=== PATIENT | male | born 1965 | race Caucasian/White ===

== ENCOUNTER 2025-02-08 15:40 | Inpatient (IN) ==
[2025-02-08 16:31] LABS: Basophils # (Auto) 0.01 K/mcL (0.00-0.30); Basophils % (Auto) 0.1 % (0.0-2.0); Eosinophils % (Auto) 1.3 % (0.0-7.0); Hematocrit 42.9 % (40.1-51.0); Hemoglobin 14.1 g/dL (13.7-17.5); Lymphocytes % (Auto) 11.6 % (15.5-49.0); Mean Cell Volume 106.5 fL (80.0-100.0); Mean Corpuscular HGB Conc 32.9 g/dL (31.0-36.0); Mean Platelet Volume 10.3 fL (8.8-12.5); Monocytes # (Auto) 0.67 K/mcL (0.10-0.90); Monocytes % (Auto) 8.7 % (1.0-12.0); Neutrophils % (Auto) 78.2 % (38.0-78.0); Platelet Count 118 K/mcL (140-440); RBC 4.03 M/mcL (4.63-6.08); WBC 7.7 K/mcL (4.5-11.0)
[2025-02-08 17:02] LABS: ALT/SGPT 11 U/L (<40); AST/SGOT 23 U/L (<40); Albumin/Globulin Ratio 1.4 (1.0-2.3); Alkaline Phosphatase 95 U/L (39-117); Bilirubin,Total 0.6 mg/dL (0.1-1.0); Blood Urea Nitrogen 26 mg/dL (8-23); Calcium 9.5 mg/dL (8.6-10.4); Carbon Dioxide 27 mmol/L (22-30); Chloride 100 mmol/L (96-108); Globulin 2.9 gm/dL (2.2-3.7); Glomerular Filtration Rate 31; Glucose 239 mg/dL (70-105); Potassium 4.4 mmol/L (3.3-5.1); Sodium 140 mmol/L (133-145)
[2025-02-08 17:03] LABS: Alcohol, Blood < 10.1 mg/dL; Alcohol,Blood < 0.010 gm/dL (<0.010)
[2025-02-08] MEDS: FUROSEMIDE 20 MG/2 ML VIAL IV ONE (17:18)
[2025-02-08] MEDS: ASPIRIN 81 MG TAB.CHEW CHEWED ONE (17:18)
[2025-02-08 18:43] LABS: Amphetamine Screen,Urine None detected; Barbiturate Screen,Urine None detected; Benzodiazepines Screen,Urine None detected; Cannabinoid Screen,Urine Suspect Positive; Cocaine Screen,Urine None detected; Fentanyl, Urine Screen None Detected; Opiate Screen,Urine None detected; Oxycodone, Urine Screen None detected; Phencyclidine Screen,Urine None detected
[2025-02-08 18:45] LABS: Appearance,Urine HAZY (Clear); Bilirubin,Urine Negative (Negative); Color,Urine YELLOW; Glucose,Urine (UA) 50 mg/dL (Negative); Ketones,Urine Negative (Negative); Leukocyte Esterase,Urine Negative /uL (Negative); Mucus,Urine FEW /hpf; Nitrate,Urine Negative (Negative); Protein,Urine Negative (Negative); Specific Gravity,Urine 1.016 (1.000-1.035); Urine Blood Negative (Negative); Urine Hyaline Cast 45 /lph (0-2); Urine RBC 0 /hpf (0-3); Urine Squamous Epithelial Cell 0 /hpf (0-4); Urine WBC 3 /hpf (0-4)
[2025-02-08] MEDS ORDERED: ONDANSETRON 4 MG/2 ML VIAL IV PRN (22:20)
[2025-02-08] MEDS ORDERED: METOCLOPRAMIDE 10 MG/2 ML VIAL IV PRN (22:20)
[2025-02-08] MEDS ORDERED: POTASSIUM CHLORIDE 20 MEQ TABLET PO PRN ×2 (22:20)
[2025-02-08] MEDS ORDERED: MAGNESIUM SULFATE 2 GM/50 ML BAG IV PRN (22:20)
[2025-02-08] MEDS ORDERED: POLYETHYLENE GLYCOL 3350 17 GM PACKET PO PRN (22:20)
[2025-02-08] MEDS ORDERED: IPRATROPIUM/ALBUTEROL 3 ML AMPUL.NEB NEB PRN (22:20)
[2025-02-08] MEDS ORDERED: DEXTROSE 31 GM ORAL.SUSP PO PRN (22:20)
[2025-02-08] MEDS ORDERED: SENNOSIDES 1 TABLET PO PRN (22:20)
[2025-02-08] MEDS ORDERED: ACETAMINOPHEN 325 MG TABLET PO PRN (22:20)
[2025-02-08] MEDS ORDERED: POTASSIUM CHLORIDE 40 MEQ in DEXTROSE 5% IN WATER 500 ML IV PRN (22:20)
[2025-02-08] MEDS: 0.9 % SODIUM CHLORIDE 1,000 ML IV SCH (22:35)
[2025-02-08] MEDS: DOCUSATE SODIUM 100 MG CAPSULE PO SCH (22:41)
[2025-02-08] MEDS: INSULIN LISPRO 1 UNIT/0.01 ML UNIT SQ SCH (22:44)
[2025-02-08] MEDS: FAMOTIDINE 20 MG TABLET PO ONE (22:45)
[2025-02-08] MEDS: FAMOTIDINE 20 MG TABLET PO SCH (22:45)
[2025-02-08 22:56] LABS: Hemoglobin A1C 6.6 % Hgb (4.0-6.0)
[2025-02-08] MEDS: INSULIN LISPRO 1 UNIT/0.01 ML UNIT SQ ONE (23:23)
[2025-02-09 06:45] LABS: Basophils # (Auto) 0.03 K/mcL (0.00-0.30); Basophils % (Auto) 0.5 % (0.0-2.0); Eosinophils # (Auto) 0.29 K/mcL (0.00-0.70); Eosinophils % (Auto) 5.1 % (0.0-7.0); Hematocrit 39.6 % (40.1-51.0); Lymphocytes % (Auto) 31.8 % (15.5-49.0); Mean Cell Volume 105.9 fL (80.0-100.0); Mean Corpuscular HGB Conc 32.8 g/dL (31.0-36.0); Mean Platelet Volume 10.9 fL (8.8-12.5); Monocytes # (Auto) 0.55 K/mcL (0.10-0.90); Monocytes % (Auto) 9.7 % (1.0-12.0); Neutrophils % (Auto) 52.7 % (38.0-78.0); Platelet Count 98 K/mcL (140-440); RBC 3.74 M/mcL (4.63-6.08); Red Cell Distribution Width 12.9 % (11.5-14.5); WBC 5.7 K/mcL (4.5-11.0)
[2025-02-09 06:47] LABS: ALT/SGPT 10 U/L (<40); AST/SGOT 19 U/L (<40); Albumin 3.5 gm/dL (3.2-5.2); Albumin/Globulin Ratio 1.4 (1.0-2.3); Alkaline Phosphatase 86 U/L (39-117); Bilirubin,Direct 0.2 mg/dL (<0.3); Bilirubin,Total 0.5 mg/dL (0.1-1.0); Blood Urea Nitrogen 25 mg/dL (8-23); Carbon Dioxide 27 mmol/L (22-30); Chloride 102 mmol/L (96-108); Globulin 2.5 gm/dL (2.2-3.7); Glomerular Filtration Rate 45; Glucose 115 mg/dL (70-105); Lactate Dehydrogenase 167 U/L (135-225); Phosphorous 3.4 mg/dL (2.5-4.5); Potassium 3.6 mmol/L (3.3-5.1); Sodium 138 mmol/L (133-145); Triglycerides 108 mg/dL (<150); Uric Acid 9.3 mg/dL (2.5-8.0)
[2025-02-09] MEDS ORDERED: LORazepam 2 MG/ML VIAL IV PRN (07:33)
[2025-02-09] MEDS ORDERED: chlordiazePOXIDE 25 MG CAPSULE PO PRN (07:33)
[2025-02-09] MEDS ORDERED: cloNIDine HCL 0.1 MG TABLET PO PRN (07:33)
[2025-02-09] MEDS: INSULIN GLARGINE, HUMAN 1 UNIT/0.01 ML SQ SCH (08:53)
[2025-02-09] MEDS: THIAMINE 100 MG in 0.9 % SODIUM CHLORIDE 50 ML IV SCH (08:54)
[2025-02-09] MEDS: TAMSULOSIN 0.4 MG CAPSULE PO ONE (08:55)
[2025-02-09] MEDS: GABAPENTIN 300 MG CAPSULE PO SCH (08:55)
[2025-02-09] MEDS: MULTIVIT,THER IRON,CA,FA & MIN 1 TABLET PO SCH (08:55)
[2025-02-09] MEDS: FOLIC ACID 1 MG TABLET PO SCH (08:55)
[2025-02-09] MEDS: ASPIRIN 81 MG TAB.CHEW PO SCH (08:55)
[2025-02-09] MEDS: ESCITALOPRAM 10 MG TABLET PO SCH (08:55)
[2025-02-09] MEDS: ENOXAPARIN 40 MG/0.4 ML SYRINGE SQ SCH (08:56)
[2025-02-09] MEDS ORDERED: ASPIRIN 325 MG ENTERIC COATED TABLET PO SCH (09:00)
[2025-02-09] MEDS: THIAMINE IV SCH (10:52)
[2025-02-09] MEDS: SODIUM CHLORIDE 0.9% IV SCH (10:52)
[2025-02-09] MEDS: 0.9 % SODIUM CHLORIDE 10 ML SYRINGE IV SCH (14:14)
[2025-02-09] MEDS: NIFEdipine 30 MG TAB.XL.24H PO SCH (14:15)
[2025-02-09 19:14] LABS: Thyroid Stimulating Hormone 0.75 uIU/mL (0.27-5.01)
[2025-02-09 19:15] LABS: Free T4 (Free Thyroxine) 0.98 ng/dL (0.93-1.70)
[2025-02-09] MEDS: TAMSULOSIN 0.4 MG CAPSULE PO SCH (20:10)
[2025-02-09] MEDS: THIAMINE 100 MG/ML VIAL ONE (20:25)
[2025-02-10 06:16] LABS: Basophils # (Auto) 0.03 K/mcL (0.00-0.30); Basophils % (Auto) 0.5 % (0.0-2.0); Eosinophils # (Auto) 0.41 K/mcL (0.00-0.70); Eosinophils % (Auto) 6.6 % (0.0-7.0); Hematocrit 39.9 % (40.1-51.0); Hemoglobin 13.3 g/dL (13.7-17.5); Lymphocytes # (Auto) 1.33 K/mcL (1.50-4.80); Lymphocytes % (Auto) 21.3 % (15.5-49.0); Mean Cell Volume 104.2 fL (80.0-100.0); Mean Corpuscular HGB Conc 33.3 g/dL (31.0-36.0); Mean Platelet Volume 10.8 fL (8.8-12.5); Monocytes # (Auto) 0.54 K/mcL (0.10-0.90); Monocytes % (Auto) 8.6 % (1.0-12.0); Neutrophils % (Auto) 62.8 % (38.0-78.0); Platelet Count 103 K/mcL (140-440); RBC 3.83 M/mcL (4.63-6.08); Red Cell Distribution Width 12.7 % (11.5-14.5); WBC 6.3 K/mcL (4.5-11.0)
[2025-02-10 06:18] LABS: ALT/SGPT 10 U/L (<40); AST/SGOT 18 U/L (<40); Albumin 3.6 gm/dL (3.2-5.2); Albumin/Globulin Ratio 1.3 (1.0-2.3); Alkaline Phosphatase 85 U/L (39-117); Bilirubin,Direct 0.2 mg/dL (<0.3); Bilirubin,Total 0.6 mg/dL (0.1-1.0); Blood Urea Nitrogen 20 mg/dL (8-23); Calcium 9.1 mg/dL (8.6-10.4); Carbon Dioxide 28 mmol/L (22-30); Chloride 105 mmol/L (96-108); Globulin 2.7 gm/dL (2.2-3.7); Glomerular Filtration Rate 53; Glucose 55 mg/dL (70-105); Lactate Dehydrogenase 177 U/L (135-225); Sodium 142 mmol/L (133-145); Uric Acid 8.2 mg/dL (2.5-8.0)
[2025-02-10 07:54] LABS: HDL Cholesterol 51 mg/dL (>40); LDL Cholesterol,Calculated 116 mg/dL (<100); Non-HDL Cholesterol 135 mg/dL (<130); Triglycerides 93 mg/dL (<150)
[2025-02-10] MEDS ORDERED: IOPAMIDOL 100 ML BOTTLE IV ONE ×2 (12:31→13:30)
[2025-02-10] MEDS ORDERED: HEPARIN 5,000 UNIT/ML VIAL IV PRN (13:06)
[2025-02-10] MEDS: LACTATED RINGERS 1,000 ML IV SCH (13:52)
[2025-02-10] MEDS: HEPARIN SOD,PORK IN 0.45% NACL 500 ML IV SCH (14:19)
[2025-02-10 14:43] LABS: Partial Thromboplastin Time 32.9 sec (20.0-37.0)
[2025-02-11] MEDS: DEXTROSE 50% 50 ML VIAL IV PRN (02:21)
[2025-02-11] MEDS: DEXTROSE 50% 50 ML SYRINGE IV ONE (02:28)
[2025-02-11 04:24] LABS: Basophils # (Auto) 0.02 K/mcL (0.00-0.30); Basophils % (Auto) 0.2 % (0.0-2.0); Eosinophils % (Auto) 1.2 % (0.0-7.0); Hematocrit 41.3 % (40.1-51.0); Lymphocytes # (Auto) 0.62 K/mcL (1.50-4.80); Lymphocytes % (Auto) 7.6 % (15.5-49.0); Mean Cell Volume 104.6 fL (80.0-100.0); Mean Corpuscular HGB Conc 33.9 g/dL (31.0-36.0); Mean Platelet Volume 10.8 fL (8.8-12.5); Monocytes # (Auto) 0.47 K/mcL (0.10-0.90); Monocytes % (Auto) 5.8 % (1.0-12.0); Platelet Count 92 K/mcL (140-440); RBC 3.95 M/mcL (4.63-6.08); Red Cell Distribution Width 12.7 % (11.5-14.5); WBC 8.1 K/mcL (4.5-11.0)
[2025-02-11 04:33] LABS: ALT/SGPT 10 U/L (<40); AST/SGOT 19 U/L (<40); Albumin 3.8 gm/dL (3.2-5.2); Albumin/Globulin Ratio 1.3 (1.0-2.3); Alkaline Phosphatase 97 U/L (39-117); Bilirubin,Direct 0.3 mg/dL (<0.3); Bilirubin,Total 0.7 mg/dL (0.1-1.0); Blood Urea Nitrogen 14 mg/dL (8-23); Calcium 9.7 mg/dL (8.6-10.4); Carbon Dioxide 27 mmol/L (22-30); Chloride 101 mmol/L (96-108); Glomerular Filtration Rate 64; Glucose 171 mg/dL (70-105); Lactate Dehydrogenase 204 U/L (135-225); Phosphorous 3.6 mg/dL (2.5-4.5); Potassium 3.9 mmol/L (3.3-5.1); Sodium 140 mmol/L (133-145); Triglycerides 78 mg/dL (<150); Uric Acid 6.9 mg/dL (2.5-8.0)
[2025-02-11] MEDS ORDERED: THIAMINE 100 MG TABLET PO SCH (09:00)
[2025-02-11] MEDS: NIFEdipine 30 MG TAB.XL.24H PO SCH (10:07)
[2025-02-11] MEDS: LOSARTAN 50 MG TABLET PO SCH (10:07)
[2025-02-11] MEDS: APIXABAN 5 MG TABLET PO SCH (10:46)
[2025-02-11] MEDS ORDERED: INSULIN GLARGINE, HUMAN 1 UNIT/0.01 ML SQ SCH (12:15)
[2025-02-11] MEDS: INSULIN LISPRO 1 UNIT/0.01 ML UNIT SQ SCH (12:22)
[2025-02-11] MEDS: INSULIN GLARGINE, HUMAN 1 UNIT/0.01 ML SQ ONE (12:53)
[2025-02-12 07:14] LABS: Basophils # (Auto) 0.03 K/mcL (0.00-0.30); Basophils % (Auto) 0.4 % (0.0-2.0); Eosinophils # (Auto) 0.53 K/mcL (0.00-0.70); Eosinophils % (Auto) 6.4 % (0.0-7.0); Hematocrit 39.3 % (40.1-51.0); Hemoglobin 13.2 g/dL (13.7-17.5); Lymphocytes # (Auto) 1.27 K/mcL (1.50-4.80); Lymphocytes % (Auto) 15.3 % (15.5-49.0); Mean Cell Volume 105.4 fL (80.0-100.0); Mean Corpuscular HGB Conc 33.6 g/dL (31.0-36.0); Mean Platelet Volume 11.3 fL (8.8-12.5); Monocytes # (Auto) 0.87 K/mcL (0.10-0.90); Monocytes % (Auto) 10.5 % (1.0-12.0); Neutrophils % (Auto) 67.3 % (38.0-78.0); Platelet Count 99 K/mcL (140-440); RBC 3.73 M/mcL (4.63-6.08); Red Cell Distribution Width 12.8 % (11.5-14.5); WBC 8.3 K/mcL (4.5-11.0)
[2025-02-12 07:43] LABS: ALT/SGPT 11 U/L (<40); AST/SGOT 17 U/L (<40); Albumin 3.4 gm/dL (3.2-5.2); Albumin/Globulin Ratio 1.1 (1.0-2.3); Alkaline Phosphatase 87 U/L (39-117); Bilirubin,Direct 0.3 mg/dL (<0.3); Bilirubin,Total 0.7 mg/dL (0.1-1.0); Blood Urea Nitrogen 13 mg/dL (8-23); Calcium 9.3 mg/dL (8.6-10.4); Carbon Dioxide 31 mmol/L (22-30); Chloride 101 mmol/L (96-108); Glomerular Filtration Rate 72; Glucose 60 mg/dL (70-105); Lactate Dehydrogenase 192 U/L (135-225); Potassium 4.2 mmol/L (3.3-5.1); Sodium 142 mmol/L (133-145); Triglycerides 61 mg/dL (<150); Uric Acid 6.6 mg/dL (2.5-8.0)
[2025-02-12] MEDS ORDERED: INSULIN GLARGINE, HUMAN 1 UNIT/0.01 ML SQ SCH (09:00)
[2025-02-12] MEDS: INSULIN GLARGINE, HUMAN 1 UNIT/0.01 ML SQ SCH ×2 (09:34→10:27)
[2025-02-13 08:05] LABS: Basophils # (Auto) 0.04 K/mcL (0.00-0.30); Basophils % (Auto) 0.6 % (0.0-2.0); Eosinophils # (Auto) 0.49 K/mcL (0.00-0.70); Eosinophils % (Auto) 7.7 % (0.0-7.0); Hematocrit 40.3 % (40.1-51.0); Hemoglobin 13.7 g/dL (13.7-17.5); Lymphocytes # (Auto) 1.31 K/mcL (1.50-4.80); Lymphocytes % (Auto) 20.6 % (15.5-49.0); Mean Cell Volume 104.9 fL (80.0-100.0); Mean Platelet Volume 11.8 fL (8.8-12.5); Monocytes # (Auto) 0.66 K/mcL (0.10-0.90); Monocytes % (Auto) 10.4 % (1.0-12.0); Neutrophils % (Auto) 60.4 % (38.0-78.0); Platelet Count 109 K/mcL (140-440); RBC 3.84 M/mcL (4.63-6.08); Red Cell Distribution Width 12.8 % (11.5-14.5); WBC 6.4 K/mcL (4.5-11.0)
[2025-02-13 08:07] LABS: ALT/SGPT 16 U/L (<40); AST/SGOT 24 U/L (<40); Albumin 3.8 gm/dL (3.2-5.2); Albumin/Globulin Ratio 1.3 (1.0-2.3); Alkaline Phosphatase 95 U/L (39-117); Bilirubin,Direct 0.3 mg/dL (<0.3); Bilirubin,Total 0.7 mg/dL (0.1-1.0); Blood Urea Nitrogen 17 mg/dL (8-23); Calcium 9.3 mg/dL (8.6-10.4); Carbon Dioxide 30 mmol/L (22-30); Chloride 99 mmol/L (96-108); Glomerular Filtration Rate 72; Glucose 184 mg/dL (70-105); Lactate Dehydrogenase 199 U/L (135-225); Phosphorous 3.2 mg/dL (2.5-4.5); Potassium 4.5 mmol/L (3.3-5.1); Sodium 140 mmol/L (133-145); Triglycerides 66 mg/dL (<150); Uric Acid 6.1 mg/dL (2.5-8.0)
[2025-02-13 13:09] LABS: Vitamin B1-SO 201.6 nmol/L (66.5-200.0)
[2025-02-14 07:24] LABS: Basophils # (Auto) 0.03 K/mcL (0.00-0.30); Basophils % (Auto) 0.5 % (0.0-2.0); Eosinophils # (Auto) 0.49 K/mcL (0.00-0.70); Eosinophils % (Auto) 7.6 % (0.0-7.0); Hematocrit 41.4 % (40.1-51.0); Hemoglobin 13.6 g/dL (13.7-17.5); Lymphocytes # (Auto) 1.37 K/mcL (1.50-4.80); Lymphocytes % (Auto) 21.3 % (15.5-49.0); Mean Cell Volume 107.5 fL (80.0-100.0); Mean Corpuscular HGB Conc 32.9 g/dL (31.0-36.0); Mean Platelet Volume 11.1 fL (8.8-12.5); Monocytes % (Auto) 10.9 % (1.0-12.0); Neutrophils % (Auto) 59.4 % (38.0-78.0); Platelet Count 106 K/mcL (140-440); RBC 3.85 M/mcL (4.63-6.08); Red Cell Distribution Width 12.8 % (11.5-14.5); WBC 6.4 K/mcL (4.5-11.0)
[2025-02-14 07:30] LABS: ALT/SGPT 21 U/L (<40); AST/SGOT 30 U/L (<40); Albumin 3.6 gm/dL (3.2-5.2); Albumin/Globulin Ratio 1.3 (1.0-2.3); Alkaline Phosphatase 88 U/L (39-117); Bilirubin,Direct 0.2 mg/dL (<0.3); Bilirubin,Total 0.5 mg/dL (0.1-1.0); Blood Urea Nitrogen 19 mg/dL (8-23); Carbon Dioxide 28 mmol/L (22-30); Chloride 101 mmol/L (96-108); Globulin 2.8 gm/dL (2.2-3.7); Glomerular Filtration Rate 72; Glucose 63 mg/dL (70-105); Lactate Dehydrogenase 199 U/L (135-225); Phosphorous 4.1 mg/dL (2.5-4.5); Potassium 3.9 mmol/L (3.3-5.1); Sodium 141 mmol/L (133-145); Triglycerides 59 mg/dL (<150); Uric Acid 6.3 mg/dL (2.5-8.0)
[2025-02-14] MEDS: NICOTINE POLACRILEX 2 MG GUM CHEW/PARK PRN (19:55)
[2025-02-16] MEDS: THIAMINE 100 MG TABLET PO SCH (10:06)
[2025-02-16 12:41] VITALS: TEMP 98.4; O2SAT 96
== END 2025-02-16 12:41 | DRG 64 ==
LOC: ED 15:40 → ICU 22:16 → MEDSUR 02-12 18:05
PROVIDERS: ADMIT Internal Medicine; ATTEND Student in an Organized Health Care Education/Training Program